=== PATIENT | male | born 1985 | race Caucasian/White ===

== ENCOUNTER 2019-11-05 04:01 | Emergency (ER) | payer SELFPAY ==
[~2019-11-05] VITALS: Ht 182.9 cm; Wt 90.0 kg
[2019-11-05] MEDS ORDERED: LIDOcaine 1% W/epiNEPHrine 1:100,000 20ml vial SQ ONE (04:15)
[2019-11-05] MEDS ORDERED: cephalexin 250mg capsule PO ONE (04:15)
--- NOTE | 2019-11-05 04:20 | NUR ---
CONTACTED [facility]. AND REPORTED THE INCIDENT. CASE # [id number] - THEY STATED THAT THEY MAY HAVE [employer] COME TO TAKE A STATEMENT OR THEY MAY CALL BACK FOR MORE INFORMATION.
--- NOTE | 2019-11-05 04:43 | NUR ---
SPOKE WITH OFFICER FROM [facility] REGARDING PT INFORMATION. OFFICER REQUESTED TO SPEAK TO PT. WHEN ATTEMPTED TO HAVE PT SPEAK ON PHONE TO OFFICER, PT REFUSED TO ANSWER QUESTIONS.
--- NOTE | 2019-11-05 05:06 | NUR ---
REGISTRATION ADVISED THAT THE PTS FRIEND "FREDIS" IS HERE AND ASKING FOR PATIENTS CONDITION. I SPOKE WITH THE PATIENT AND HE STATED THAT IS WAS OK TO UPDATE HIS FRIEND. I MET WITH FREDIS IN THE LOBBY AND ADVISED HIM THAT HIS FRIEND WAS MOST LIKELY GOING TO NEED TO GO TO THE OR IN THE MORNING. HE STATED THAT THEY INITIALLY WENT TO THE ER IN [place] AND THEN "JAYCEE FREAKED OUT AND WALKED OUT" SO HE DROVE HIM DOWN HERE TO [facility] [place] AND "HE DID THE SAME THING". HE STATES THAT THE PATIENT IS "FRAGILE" AND HE DOESN'T WANT HIM TO WALK OUT AGAIN. HE ASKED IF HE COULD CALL THE PATIENT AND I STATED THAT WAS OK. I EVEN OFFERED TO PUT A PHONE IN THE ROOM FOR THE PATIENT SHOULD HIS CELL PHONE NOT WORK.
[2019-11-05] MEDS ORDERED: HYDR-3965 PO (05:38)
[2019-11-05] MEDS ORDERED: AMOX-422 PO (05:38)
[2019-11-05] MEDS ORDERED: bacitracin 15gm ointment TP ONE (05:50)
[2019-11-05 06:09] VITALS: BP 121/80
== END 2019-11-05 06:10 | disposition home or self-care (01) ==
LOC: ER 04:02
DX: S62.625B Displaced fracture of middle phalanx of left ring finger, initial encounter for open fracture (principal); Z79.899 Other long term (current) drug therapy; W34.00XA Accidental discharge from unspecified firearms or gun, initial encounter; Y93.89 Activity, other specified; Y92.89 Other specified places as the place of occurrence of the external cause; Y99.8 Other external cause status
CPT/HCPCS: 64450; 73140; 99284